=== PATIENT | male | born 1995 | race Caucasian/White ===

== ENCOUNTER 2016-09-23 22:11 | Emergency (ER) | payer BC ==
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
== END 2016-09-23 22:50 | disposition home or self-care (01) ==
LOC: ER 22:11
DX: T68.XXXA Hypothermia, initial encounter (principal)